=== PATIENT | female | born 1995 | race Caucasian/White ===

== ENCOUNTER 2017-03-09 05:39 | Day surgery (SDC) | payer BC, OTHER ==
[~2017-03-09] VITALS: Ht 160 cm; Wt 64.0 kg
[2017-03-09] MEDS ORDERED: NO MEDS (06:58)
[2017-03-09] MEDS ORDERED: MIDAZOLAM 1 MG/ML 2 ML INJ ONE ×2 (07:42)
[2017-03-09] MEDS ORDERED: FENTAnyl 50 MCG/ML VIAL ONE (07:42)
--- NOTE | 2017-03-09 07:42 | OPPN ---
Date/Time of Note Date/Time of Note DATE: 03/09/17 TIME: 07:41 Operative Report Preoperative Diagnosis Abdominal pain Chronic heartburn Postoperative Diagnosis Hiatal hernia and gastroesophageal reflux disease Gastritis with erosions Operation/Procedure Performed Esophagogastroduodenoscopy and biopsy Surgeon see signature line laboratory chemical assistant None Anesthesia: moderate sedation Estimated blood loss: none Transfusion Required none Specimen Gastric mucosal biopsy Grafts/Implants none Complications none LAITH MARION MD Mar 09, 2017 07:42
[2017-03-09 08:09] VITALS: BP 102/66; RESP 14
--- NOTE | 2017-03-10 08:31 | GILP ---
DATE OF PROCEDURE: 03/09/2017 NAME OF PROCEDURE: Esophagogastroduodenoscopy and biopsy. SURGEON: David Oseguera MD PREOPERATIVE DIAGNOSES: 1. Abdominal pain. 2. Chronic heartburn. POSTOPERATIVE DIAGNOSES: 1. Hiatal hernia. 2. Gastroesophageal reflux disease. 3. Gastritis with erosions. 4. Gastric mucosal biopsies were taken for Helicobacter pylori test and it was positive. INDICATIONS FOR THE PROCEDURE: Ms. Kami Hamlin is a 21-year-old female patient who had upper abdo kyra pain and chronic heartburn, not responding to therapy. The patient was scheduled for endoscop ic examination for further evaluation. The procedure and possible complications were well-explained to the patient, she understood and cons ented to the procedure. DESCRIPTION OF PROCEDURE: Under the influence of fentanyl and Versed, the gastroscope was carefully introduced into the esophagus and, under direct vision, it was advanced to the stomach and through the pylorus into the duodenal bulb and descending duodenum. FINDINGS: ESOPHAGUS: The patient had hiatal hernia and gastroesophageal reflux disease. STOMACH: She had gastritis with erosions. Gastric mucosal biopsies were taken for H. pylori test a nd it was positive. DUODENUM: Normal. The patient tolerated the procedure very well and there were no complication from the procedure. At the end of the procedure, she was awake with stable vital signs and she was discharged home to the care of her family. IMPRESSION: 1. Hiatal hernia and gastroesophageal reflux disease. 2. Gastritis with erosions and positive Helicobacter pylori antibody test. PLAN: 1. Zantac 300 mg p.o. b.i.d. for 14 days. 2. Doxycycline 100 mg p.o. b.i.d. for 14 days. 3. Flagyl 500 mg p.o. b.i.d. for 14 days. 4. Pepto-Bismol 2 tablets p.o. q.i.d. for 14 days. Dictated By: DAVID GUEVARA/JESSIE Conf#: [id number] DID#: [id number]
--- NOTE | 2017-03-12 08:25 | CONS ---
DATE OF ADMISSION: DATE OF CONSULTATION: Dear Dr. Darnell, I thank you very much for this kind referral. The patient is a 21-year-old female patient who has been referred to me for further evaluation of abdominal pain associated with nausea. The patient also has got heartburn. Symptomatic medical therapy is not helping her. There is no past history of peptic ulcer disease. She is not taking any nonsteroidal anti-inflammatory agents. Her appetite has been good. No weight loss. No history of gallstones or liver disease. Not hypertensive or diabetic. No heart disease, lung problem, or kidney disease. SOCIAL HISTORY: Nonsmoker. No alcohol abuse. FAMILY HISTORY: No family history of gastrointestinal tract neoplasm. ALLERGIES: NO DRUG ALLERGY. MEDICATION: None. PHYSICAL EXAMINATION: VITAL SIGNS: She is 5 feet 3 inches tall and weighs 142 pounds. HEART: Normal heart sounds. LUNGS: Clear. ABDOMEN: Soft. No masses. Normal bowel sounds. NEUROLOGIC: Normal neurological exam. IMPRESSION: 1. Upper abdominal pain associated with nausea. 2. Patient also complains of heartburn, not responding to therapy. PLAN: Abdominal ultrasound and upper endoscopy for further evaluation. The procedure and possible complications were well explained to the patient. She understands and consents to the procedure Patient Name: MAGGI MENDOZA Dictated By: MD PAOLA Aldrich/marc/jaswinder /Document#: [id number]
== END 2017-03-09 08:30 | disposition home or self-care (01) ==
LOC: GIL 05:39
PROVIDERS: ATTEND Internal Medicine Gastroenterology
DX: R10.9 Unspecified abdominal pain (principal); K44.9 Diaphragmatic hernia without obstruction or gangrene; K21.9 Gastro-esophageal reflux disease without esophagitis; K29.70 Gastritis, unspecified, without bleeding; K25.9 Gastric ulcer, unspecified as acute or chronic, without hemorrhage or perforation
CPT/HCPCS: 43239; 84703; 87081; J2250; J3010; Z7610